=== PATIENT | female | born 1965 | race African-American/Black ===

== ENCOUNTER 2018-01-18 04:18 | Observation (INO) | payer SELFPAY ==
[2018-01-18 05:36] LABS: CKMB 1.2 ng/mL (0-6.6); Troponin I Less than 0.010 ng/mL (< 0.028)
[2018-01-18] MEDS ORDERED: Ondansetron HCl/PF 4 MG/2 ML Vial IVP PRN ×2 (06:46→07:43)
[2018-01-18] MEDS ORDERED: Acetaminophen 325 MG TAB PO PRN ×2 (06:46→07:43)
[2018-01-18] MEDS ORDERED: Ondansetron ODT 4 MG TAB SL PRN (06:46)
[2018-01-18] MEDS ORDERED: Mag-Al 1200 mg/1200 mg/30 ML UDCUP PO PRN (07:43)
[2018-01-18] MEDS ORDERED: Senokot 8.6 MG TAB PO PRN ×2 (07:43)
[2018-01-18] MEDS ORDERED: Lorazepam 2 MG/ML VIAL SLOW IVP PRN (07:43)
[2018-01-18] MEDS ORDERED: Bisacodyl 5 MG TAB PO PRN ×2 (07:43)
[2018-01-18] MEDS ORDERED: hydrALAZINE 20 MG/ML VIAL SLOW IVP PRN (07:43)
[2018-01-18] MEDS ORDERED: Calcium Carbonate 500 MG ChewTAB PO PRN (07:43)
[2018-01-18] MEDS ORDERED: Benzonatate 100 MG CAP PO PRN (07:43)
[2018-01-18] MEDS ORDERED: Loratadine 10 MG TAB PO PRN (07:43)
[2018-01-18] MEDS ORDERED: Nitroglycerin 0.4 MG TAB (25 Tab Bottle) SL PRN (07:43)
[2018-01-18] MEDS ORDERED: cloNIDine 0.1 MG TAB PO PRN (07:43)
[2018-01-18] MEDS ORDERED: Diabetic Tussin 200 MG/10 ML UDCUP PO PRN (07:43)
[2018-01-18] MEDS ORDERED: Nitroglycerin 0.4 MG TAB (25 Tab Bottle) PO PRN (07:43)
[2018-01-18] MEDS ORDERED: Sodium Chloride 0.9% 1,000 ML IV SCH (07:45)
[2018-01-18 08:45] LABS: Cardiac Risk 3.2 (Less than 4.5)
[2018-01-18 09:18] LABS: Troponin I Less than 0.010 ng/mL (< 0.028)
[2018-01-18 09:25] VITALS: BMI 16.2
[2018-01-18] MEDS: Enoxaparin Sodium 40 MG/0.4 ML SYRINGE SC SCH (09:30)
[2018-01-18] MEDS: Metoprolol Tartrate 25 MG TAB PO SCH ×3 (09:30→19:49)
[2018-01-18] MEDS: Famotidine 20 MG TAB PO SCH ×2 (09:30→19:49)
[2018-01-18] MEDS: Aspirin 325 MG TAB PO SCH (09:30)
--- NOTE | 2018-01-18 13:01 | NM ---
NUCLEAR MEDICINE CARDIAC STRESS WITH EJECTION FRACTION AND WALL MOTION: HISTORY: Chest pain. Hypertension. Smoker. COMPARISON: None. TECHNIQUE: The patient was administered 10.3 mCi of technetium-99m sestamibi for rest imaging and 30.20 mCi of t echnetium-99m sestamibi for stress imaging. FINDINGS: Homogeneous distribution of the radiotracer in the left ventricle on the attenuation correction image s. No reversibility. No fixed defect. TID is 1.51. End-diastolic volume is 62 mL. End-systolic volume is 19 mL. CARDIAC GATING: Normal motion and thickening. Ejection fraction is 70%. IMPRESSION: 1. No reversibility. No fixed defect. 2. Ejection fraction is 70%. POS: [facility]
[2018-01-18] MEDS ORDERED: Hydrochlorothiazide 25 MG TAB PO SCH ×2 (14:15→14:45)
--- NOTE | 2018-01-18 14:23 | SS ---
DATE OF ADMISSION: 01/18/2018 DATE OF DISCHARGE: 01/18/2018 CONDITION AT THE TIME OF DISCHARGE: Stable and improved. PRIMARY CARE PHYSICIAN: [facility]. CHIEF COMPLAINT: Chest pain. HISTORY OF PRESENT ILLNESS: Ms. Miranda is a 52-year-old female with known history of hypertension and tobacco abuse and noncompliance who presented to the emergency room with complaints of chest pain. History is mainly obtained by the patient herself and electronic medical records have been reviewed. She initially presented to [facility] with complaints of left-sided chest pain mainly in h er left upper arm. She reported that it started while she was lying down for 1 hour. She denies any associated features like dizziness, palpitations, shortness of breath, nausea, vomiting or diaphores is. The pain lasted only for a few seconds, but she wanted to come and to get it checked out, so she came to the ER. She was last seen and was admitted here to our facility in 10/2016 for similar comp laints. At that time, she was found to be hypertensive and was started on medications, but she has f maverick to take them because of financial reasons. A stress test done on 11/25/2016 was unremarkable. Yesterday upon presentation to the ER, she was hemodynamically stable with blood pressure 134/75. He r cardiac enzymes were unremarkable; however, her EKG was a little bit suspicious with T-wave changes in the lateral leads with possible left atrial, left ventricular hypertrophy. She was admitted for further evaluation. PAST MEDICAL HISTORY: 1. Hypertension. 2. Tobacco abuse. 3. Gallstones. PAST SURGICAL HISTORY: Gallbladder removal in 2000. PSYCHIATRIC HISTORY: None. SOCIAL HISTORY: She drinks once every week where she might drink a little more than usual. She smok es cigarettes for last 30 years. One pack lasts her about 3-4 days. She is currently employed. ALLERGIES: No known medication allergies. CURRENT MEDICATIONS: She is not taking any medications at home at this time. FAMILY HISTORY: Significant for diabetes and hypertension in her mother. She denies any family hist ory of premature coronary artery disease. REVIEW OF SYSTEMS: The following complete review of systems was negative, unless otherwise mentioned in the HPI or below: Constitutional: Weight loss or gain, ability to conduct usual activities. Sk in: Rash, itching. Eyes: Double vision, pain. ENT/Mouth: Nose bleeding, neck stiffness, pain, te nderness. Cardiovascular: Palpitations, dyspnea on exertion, orthopnea. Respiratory: Shortness of breath, wheezing, cough, hemoptysis, fever or night sweats. Gastrointestinal: Poor appetite, abdom inal pain, heartburn, nausea, vomiting, constipation, or diarrhea. Genitourinary: Urgency, frequenc y, dysuria, nocturia. Musculoskeletal: Pain, swelling. Neurologic/Psychiatric: Anxiety, depressio n. Allergy/Immunologic: Skin rash, bleeding tendency. PHYSICAL EXAMINATION: VITAL SIGNS: Most recent vital signs, temperature 97.6, pulse of 74, blood pressure 177/73, respirat ions 20, saturating 98% on room air. GENERAL: No acute distress, awake, alert, and oriented x3. She is status post cardiac stress test a nd she reports that it went well without her having any symptoms. HEENT: Mucous membrane is moist and pink. No oropharyngeal exudate or erythema. Head is normocepha lic, atraumatic. Pupils are equal, reactive to light and accommodation. NECK: Supple without any lymphadenopathy, JVD or bruit. CHEST: Clear to auscultation without any wheezing, rales or rhonchi. It is nontender to palpation. HEART: Rate and rhythm is regular without any murmur, rubs or gallops. ABDOMEN: Soft, nontender, nondistended, positive bowel sounds. EXTREMITIES: Free of any cyanosis, clubbing, or edema. NEUROLOGIC: Nonfocal. SKIN: Free of any rashes or bruises. I feel warm and dry to touch. PSYCHIATRIC: Normal affect. LABORATORY DATA: Her CBC shows hemoglobin at 11.4, otherwise unremarkable. D-dimer less than 0.27. Serum chemistries show sodium 135, potassium 3.4, bicarbonate 21, troponin less than 0.010 x3 with n ormal CK-MB. Her cholesterol panel checked again shows triglycerides 78, cholesterol 124, LDL 69, HD L 39. She did test positive for alcohol content in the plasma of 242. IMPRESSION AND PLAN: 1. Chest pain. The patient underwent a nuclear medicine stress test which has been reported as nega tive by the radiologist. She has no fixed or reversible defects. Her EF is estimated at 70%. At th is time, most likely the culprit is uncontrolled hypertension. The patient did receive aspirin in th e emergency room and in the hospital. She has been started on beta-betsy and hydrochlorothiazide a gain for blood pressure control. ACS has been ruled out by serial cardiac enzymes and negative stres s test. EKG changes are likely nonspecific. She is currently symptom free and we will be discharged home once we have a better blood pressure control. 2. Hypertension. She is instructed to continue to take the metoprolol and hydrochlorothiazide and p rescriptions have been provided to her. She does report that she will be able to afford them financi ally at this time. 3. Tobacco abuse. Nicotine patch has been prescribed. The patient has been counseled extensively a bout it. 4. Acute alcohol ingestion. The patient does not appear intoxicated at this time. No evidence to s uggest withdrawal symptoms. She is not a daily drinker and she is instructed to drink moderately. DISPOSITION: At this time, the patient will be discharged home as the ACS is ruled out. Chest pain is likely due to musculoskeletal reasons and uncontrolled hypertension. She is instructed to follow with primary care physician in [facility].
[2018-01-18] MEDS ORDERED: ADENOSINE 60 MG/20 ML VIAL ONE (15:12)
--- NOTE | 2018-01-18 22:36 | STRESS ---
Acquisition Time: 2018-01-18 10:45:27 Total Exercise Time: 00:04:00 Test Indications: CHEST PAIN Medications: Protocol: ADENOSINE Max HR: 122 BPM 73% of Pred: 167 BPM Max BP: 166/080 mmHG Max Work Load: 1.0 METS RESTING ECG: NORMAL SINUS RHYTHM AT 68 BPM WITH LEFT VENTRICULAR HYPERTROPHY AND NON-SPECIFIC T-WAVE ABNORMALITIES SYMPTOMS: SHORTNESS OF BREATH APPROPRIATE BLOOD PRESSURE RESPONSE FOR ADENOSINE ECTOPY: NONE ECG RESPONSE: NO SIGNIFICANT CHANGES INTERPRETATION: NEGATIVE ECG/AWAIT NUCLEAR IMAGES FOR DEFINITIVE DIAGNOSIS Confirmed by ELIZABETH HILL M.D. ([id number]) on 01/18/2018 10:35:24 PM Referred By: Skye ZAPATA Confirmed By:ELIZABETH HILL M.D.
[2018-01-19 06:02] LABS: Anion Gap 9 mmol/L (10-20); BUN (Urea Nitrogen) 11 mg/dL (9.8-20.1); Calc. Creatinine Clearance 70 mL/min (70-130); Carbon Dioxide 25 mmol/L (22-29); Chloride 107 mmol/L (98-107); Estimated GFR-MDRD Greater than 90; Glucose 111 mg/dL (70-105); Potassium 3.5 mmol/L (3.5-5.1); Sodium 137 mmol/L (136-145)
[2018-01-19 06:26] LABS: Band 2 % (5-11); Eosinophils 1 % (0-10); Hemoglobin 11.8 g/dL (12.0-16.0); Lymphocytes 25 % (21-51); MDiff Complete? YES; Mean Corpuscular HGB CONC 31.2 g/dL (32.0-36.0); Mean Corpuscular Hemoglobin 27.4 pg (27.0-31.0); Mean Corpuscular Volume 87.6 fl (81.0-99.0); Monocytes 12 % (0-10); Neutrophil 60 % (42-75); PLT Morphology Comment Appears Adequate; Platelet Count 219 thou/uL (130-400); RBC Distribution Width 17.3 % (11.5-14.5); Red Blood Cell (RBC) Count 4.33 mill/uL (4.20-5.40); White Blood Cell (WBC) Count 3.7 thou/uL (4.8-10.8)
[2018-01-19 08:55] VITALS: BP 165/64; TEMP 98.3
[2018-01-19] MEDS ORDERED: Hydrochlorothiazide 25 MG TAB PO SCH (09:00)
[2018-01-19] MEDS: Aspirin 325 MG TAB PO SCH (10:04)
[2018-01-19] MEDS: Famotidine 20 MG TAB PO SCH (10:04)
[2018-01-19] MEDS: Metoprolol Tartrate 25 MG TAB PO SCH (10:04)
[2018-01-19] MEDS: Enoxaparin Sodium 40 MG/0.4 ML SYRINGE SC SCH (10:04)
--- NOTE | 2018-01-19 14:10 | DIS ---
DATE OF ADMISSION: 01/18/2018 DATE OF DISCHARGE: 01/19/2018 Please refer to the short stay summary dictated by myself yesterday. HOSPITAL COURSE: The patient was admitted with complaints of chest pain, and hypertension with medic ation noncompliance. She underwent a nuclear medicine stress test which was unremarkable and was dis charged. However, unfortunately discharge had to be held as her blood pressure was still uncontrolle d. The patient has not taken any blood pressure medication for at least 1 or more years. She was re started on her blood pressure medications and they were adjusted based on her response. She ultimate ly had better response with 25 mg of hydrochlorothiazide and 25 mg b.i.d. of metoprolol tartrate. As of this morning, her blood pressure has improved to 165/64 from 217/93. She is feeling well and w ill be discharged. She was seen and examined prior to discharge. PHYSICAL EXAMINATION: VITAL SIGNS: This morning, temperature 98.3, pulse of 65, respirations 18, saturating 99% on room ai r, blood pressure 165/64. GENERAL: No acute distress, awake, alert, and oriented x3. CHEST: Clear to auscultation bilaterally without any wheezing, rales or rhonchi. CARDIOVASCULAR: Rhythm is regular. DISCHARGE MEDICATIONS: Hydrochlorothiazide 25 mg daily, metoprolol tartrate 25 mg p.o. b.i.d., nicot ine patch 14 mg transdermal daily. PRIMARY CARE PHYSICIAN: Nini Asencio M.D. DISCHARGE DIAGNOSES: 1. Chest pain, noncardiac, acute coronary syndrome ruled out with negative stress test. 2. Hypertension. 3. Tobacco abuse. 4. Gallstones. 5. Medication noncompliance. 6. Acute alcoholic ingestion without intoxication.
== END 2018-01-19 13:30 | disposition home or self-care (01) ==
LOC: ERS 04:18 → 2SW 05:36
PROVIDERS: ADMIT Internal Medicine; ATTEND Internal Medicine
DX: R07.89 Other chest pain (principal); I10 Essential (primary) hypertension; F17.210 Nicotine dependence, cigarettes, uncomplicated; Z91.14 Patient's other noncompliance with medication regimen; Z72.89 Other problems related to lifestyle; Z90.49 Acquired absence of other specified parts of digestive tract
CPT/HCPCS: 36415; 78452; 80048; 80061; 80307; 85025; 93005; 93017; 94760; 96361; 96375; A9500; G0378; J0153; J0360; J1650